=== PATIENT | male | born 1960 | race Caucasian/White ===

== ENCOUNTER 2019-10-12 10:05 | Observation (INO) ==
--- NOTE | 2019-10-12 12:52 | History & Physical Bridge Note ---
Date of Service October 12, 2019 History & Physical Bridge Note I have examined the patient, reviewed the History & Physical and in the interval since the performance of the History & Physical I have noted the following changes of clinical significance: no changes noted
--- NOTE | 2019-10-12 12:52 | Pre Anesthesia Assessment ---
Date of Service October 12, 2019 Pre Sedation Assessment Vital Signs Temp Pulse Resp BP Pulse Ox 10/12/19 11:00 36.5 C 64 16 106/60 96 Cardiovascular + regular rate Respiratory normal respiratory effort, lungs clear to auscultation Pre-Sedation Airway Assessment Smoking Status: Current every day smoker Hx Sleep Apnea: No Short, Thick Neck: No Thyromental Distance: > or= 3.5 Finger Breadths Oral Cavity: + WNL Mallampati Class: III ASA: ASA2 NPO Status Date of Last Intake of Fluids: 10/12/19 Time of Last Intake of Fluids: 07:00 Date of Last Intake of Solid Food: 10/11/19 Time of Last Intake of Solid Foods: 19:00 Procedure Planning Contraindications for Sedation: none Current Medications Reviewed: Yes Notes The planned sedation has been discussed with the patient. Informed Consent was obtained. I have identified the patient, determined the appropriateness of sedation and have assessed the patient immediately prior to the procedure. All medicine(s) and interventions are by my order.
[2019-10-12] MEDS ORDERED: CEFAZOLIN 250 MG/ML 1 GM VIAL ONE (13:16)
[2019-10-12] MEDS ORDERED: MIDAZOLAM HCL 5 MG/ML 1 ML VIAL ONE ×2 (13:16→14:11)
[2019-10-12] MEDS ORDERED: fentaNYL citrate 100 MCG/2 ML VIAL ONE ×2 (13:16→14:11)
[2019-10-12] MEDS ORDERED: ACETAMINOPHEN 325 MG TAB PO PRN (15:27)
--- NOTE | 2019-10-12 15:35 | Discharge Summary ---
Date of Service October 13, 2019 Admission HPI Per Admitting Provider pt admitted for elective EPS with possible defibrillator due to cardiac arrest and severe CAD and ICM. Admission Exam Per Admitting Provider aaox3, NAD NC/AT, EOMI Supple No JVD Nrl S1/S2, No murmur CTA b/l no w/r/r soft nt/nd no LE edema b/l skin intact no focal deficits Principal Diagnosis ICM negative EPS Discharge Exam aaox3, NAD NC/AT, EOMI Supple No JVD Nrl S1/S2, No murmur CTA b/l no w/r/r soft nt/nd no LE edema b/l skin intact no focal deficits Discharge Data Allergies Allergy/AdvReac Type Severity Reaction Status Date / Time No Known Allergies Allergy Unverified 06/27/11 20:13 Procedures Performed Operation Date: 10/12/19 13:00 <No data on this case meets the specified criteria> Ordered Studies 10/12/19 07:00 EP Lab Images for PACS ONCE Hospital Course (1) Ischemic cardiomyopathy: (2) CAD (coronary artery disease): Total Time Total Time Spent Total Time Spent (In Minutes): 30 Total Time Includes: Examination of the Patient, Discharge Planning, Medication Reconciliation and Other Discharge Plan Discharge Items Patient Disposition: Home - Self-Care Reason For Visit: Cardiac Arrest; ICM Discharge Diagnosis: ICM s/p negative EPS Condition on Discharge: Good Activity: Resume your previous activity Bathing: No limitations Non-emergency contact: Brush Loader And Handle Attacher Call non-emergency contact if: you have any medication questions Follow-up/Referrals: Levi Nettles MD [Primary Care Provider] - Diet: Heart Healthy and Low Sodium (2gm) Addtl Attending Provider Instructions: if you have any chest discomfort, arm tingling; or any symptoms that subtly resemble those you had the day prior to your cardiac arrest call 911 and go to the nearest ER F/u in [facility] cardiology as scheduled Pending Studies at Discharge: No Stand-Alone Forms: My [facility] [employer] Medications and DC Order Prescriptions: Continued Mirtazapine (Remeron *) 15 MG tablet 15 mg PO HS PRN Qty: 0 RF: 0 aspirin 81 mg Tablet,Chewable 81 mg PO DAILY RF: 0 multivitamin [Multiple Vitamins] Tablet 1 tab PO DAILY RF: 0 carvedilol 6.25 mg Tablet 6.25 mg PO BID RF: 0 thiamine HCl (vitamin B1) 100 mg Tablet 100 mg PO DAILY RF: 0 losartan 25 mg Tablet 25 mg PO DAILY RF: 0 nitroglycerin 0.4 mg Tablet, Sublingual 0.4 mg RF: 0 folic acid 1 mg Tablet 1 mg PO DAILY RF: 0 furosemide [Lasix] 20 mg Tablet 20 mg PO BID RF: 0 magnesium chloride 64 mg Tablet,Delayed Release (Dr/Ec) 64 mg PO BID RF: 0 ticagrelor 90 mg Tablet 90 mg PO BID RF: 0 desloratadine 5 mg PO DAILY RF: 0 Discharge Orders: Discharge Order (Routine); Ordered 10/13/19 Ordered By: Gloria Elias Admission Data Admit Date/Time: 10/12/19 15:27 Attending Provider: Gloria Elias Admit Provider: Gloria Elias Primary Care Provider: Levi Nettles Other Providers: Saran Phillips
[2019-10-12] MEDS ORDERED: MIRTAZAPINE TAB 15 MG TAB PO PRN (16:21)
[2019-10-12] MEDS: FUROSEMIDE 20 MG TAB PO SCH (17:04)
--- NOTE | 2019-10-12 17:58 | Operative Report ---
DATE OF OPERATION: 10/12/2019 PREOPERATIVE DIAGNOSES: Ischemic cardiomyopathy and cardiac arrest. POSTOPERATIVE DIAGNOSES: Ischemic cardiomyopathy and cardiac arrest. PROCEDURE: Electrophysiology study. SURGEON: Gloria Elias DO. ASSISTANTS: None. ANESTHESIA: Monitored conscious sedation administered under my supervision by Rafa Del Rio. Start time 13:23, end time 15:28. Total of 8 mg of Versed, 200 mcg of fentanyl. IV FLUIDS: 67 mL. BLOOD LOSS: 5 mL. CONDITION: Stable. URINE OUTPUT: None. SPECIMENS: None. FINDINGS: See below. DRAINS: None. INDICATIONS: This is a 59-year-old gentleman with past medical history for coronary artery disease, has a past medical history for cardiac arrest in June 2019 where he was brought to the local hospital in [place], had a cardiac cath, was found to have severe coronary artery disease, proximal LAD was 100%, most likely a [employer] AIDE, had collaterals from the right feeding it. The OM1 was 80% thought to be the culprit for acute coronary syndrome, non-STEMI. He got a PCI to this and the RCA had a mid 60%, FFR was negative. His ejection fraction at that time was 45% and remains 45% on most recent ejection fraction in 09/2019. He also has a history of sinus bradycardia, tobacco use, hyperlipidemia and orthostatic hypotension. Due to surviving the cardiac arrest with his significant CAD and ischemic cardiomyopathy, he was recommended an electrophysiology study with possible defibrillator if it was positive for inducible VT. CONSENT: Consent was obtained prior to the patient going into Electrophysiology Lab. The patient was informed of the risks, benefits and alternative procedure. Risks include but not limited to sudden cardiac , cardiac arrhythmias, cerebrovascular accident, myocardial infarction, injury to the blood vessels, chamber of the heart, bleeding and infection. The patient understood these risks and agreed with procedure as planned. Informed consent was obtained. DESCRIPTION OF THE PROCEDURE: The patient was brought into the Electrophysiology Lab in a fasting state. He was connected to continuous cardiac monitoring. Timeout was performed to ensure the patient identity and procedure correctly. The patient was prepped and draped over bilateral groins in normal surgical standard fashion. Monitored conscious sedation was given throughout the procedure for the patient's comfort level. [place] precautions obtained throughout the procedure. A 5 mL of 1% lidocaine were given in the right femoral groin. Then using the modified Seldinger technique, venous access was obtained on 3 separate needle sticks with the following sheaths and catheters placed. Right femoral vein had a 6-[place] sheath followed by a Lobo quadripolar catheter positioned in the high right atrium. Then a 6-[place] sheath followed by a Hisser catheter positioned over the His bundle region and 6-[place] sheath followed by a Lobo quadripolar catheter was initially placed in the right ventricular apex and then the right ventricular outflow tract. With the catheters in position, electrophysiology study was performed with following findings. Sinus cycle length 1033 milliseconds, [place] interval 198 milliseconds, QRS 67 milliseconds, QT 397 milliseconds. The AH was 110 milliseconds and the HV was 58 milliseconds. AV Wenckebach was found to be 350 milliseconds. The AV node ERP was less than or equal to the atrial ERP. The atrial ERP was 600/280 and 400/310. Right ventricular ERP was 600/240 and 400/220. I gave up to quadruple extrastimuli from the right ventricular apex as well as the right ventricular outflow tract with no inducible sustained VT. The longest nonsustained beats I had was a run of 12. The catheters were then removed from the body and the sheaths were pulled and manual compression was used to establish hemostasis. IMPRESSION: 1. Negative inducible ventricular arrhythmias in the EP study. 2. Normal atrioventricular tariq pathology. PLAN: Monitor the patient post sedation since he does not have a way to home without calling a taxi and since he did get sedation, he should be monitored overnight and will be discharged home in the morning. He will continue all his medicines and will follow up with General Cardiology as scheduled. I attest to the content of the Intraoperative Record and any orders documented therein. Any exception s are noted below.
[2019-10-12] MEDS: MAGNESIUM CHLORIDE 64MG DELAYED REL TAB PO SCH (20:10)
[2019-10-12] MEDS: carvediloL 6.25 MG TAB PO SCH (20:11)
[2019-10-12] MEDS: TICAGRELOR 90 MG TAB PO SCH (21:09)
[2019-10-13] MEDS: FUROSEMIDE 20 MG TAB PO SCH (07:50)
[2019-10-13] MEDS: MAGNESIUM CHLORIDE 64MG DELAYED REL TAB PO SCH (07:51)
[2019-10-13] MEDS: TICAGRELOR 90 MG TAB PO SCH (07:51)
[2019-10-13] MEDS: carvediloL 6.25 MG TAB PO SCH (07:51)
[2019-10-13] MEDS ORDERED: LOSARTAN POTASSIUM 25 MG TAB PO SCH (09:00)
[2019-10-13] MEDS ORDERED: THIAMINE HCL 100 MG TAB PO SCH (09:00)
[2019-10-13] MEDS ORDERED: ASPIRIN 81 MG ECTAB PO SCH (09:00)
[2019-10-13] MEDS ORDERED: MULTIVITAMIN TAB PO SCH (09:00)
[2019-10-13] MEDS ORDERED: FOLIC ACID 1 MG TAB PO SCH (09:00)
== END 2019-10-13 08:59 | disposition home or self-care (01) ==
LOC: EP 10:05 → 2S 10:05